=== PATIENT | male | born 1995 | race American Indian/Alaskan Native ===

== ENCOUNTER 2020-11-19 23:49 | Emergency (ER) | payer SELFPAY ==
[2020-11-20 00:59] VITALS: BP 148/104
[2020-11-20 02:18] LABS: BUN/Creatinine Ratio 13; Blood Urea Nitrogen 9 mg/dL (9-20); Calcium 9.2 mg/dL (8.4-10.2); Hemolysis Index 2
[2020-11-20 02:31] LABS: Basophils % (Auto) 0.4 % (0.0-1.8); Eosinophils # (Auto) 0.1 K/mm3 (0.0-0.4); Eosinophils % (Auto) 1.1 % (0.0-4.3); Hematocrit 37.1 % (35.5-45.6); Hemoglobin 13.1 gm/dl (11.8-15.2); Lymphocytes # (Auto) 1.5 K/mm3 (1.2-5.4); Lymphocytes % (Auto) 20.4 % (13.4-35.0); Mean Corpuscular HGB Conc 35 % (32-34); Mean Corpuscular Volume 95 fl (84-94); Monocytes # (Auto) 0.7 K/mm3 (0.0-0.8); Monocytes % (Auto) 9.9 % (0.0-7.3); Platelet Count 259 K/mm3 (140-440); Red Blood Count 3.93 M/mm3 (3.65-5.03); Red Cell Distribution Width 12.8 % (13.2-15.2)
[2020-11-20] MEDS ORDERED: LIDOCAINE VISCOUS 2% 15 ML ORAL LIQD PO ONE (04:56)
[2020-11-20] MEDS ORDERED: levETIRAcetam 500 MG TAB PO ONE (04:56)
--- NOTE | 2020-11-20 04:56 | Emergency Department Report ---
ED General Adult HPI - General Chief complaint: Seizure Stated complaint: DON'T FEEL GOOD Time Seen by Provider: 11/20/20 04:55 Source: patient, RN notes reviewed Mode of arrival: Stretcher Limitations: No Limitations - History of Present Illness Initial comments: The patient was evaluated in the emergency department for symptoms described in the history of present illness. He/she was evaluated in the context of the global COVID-19 pandemic, which necessitated consideration that the patient might be at risk for infection with the virus that causes COVID-19. Institutional protocols and algorithms that pertain to the evaluation of patients at risk for COVID-19 are in a state of rapid change based on information released by regulatory bodies including the CDC and federal and state organizations. These policies and algorithms were followed during the patient's care in the emergency department. Please note that these policies, procedures and recommendations changed on a rapid basis. This is a 25-year-old gentleman with reported history of seizure disorder, takes 1 g of Keppra twice daily, also smokes cigarettes and occasional cannabis, p resenting to the ER with a complaint of tongue bite, suffered from a convulsion 1 week ago, and feeling like he will have a seizure. He has not had a seizure for 1 week. He denies headache, neck pain, chest pain, abdominal pain, shortness of breath, urinary symptoms. He is anxious. He would like a refill on his Keppra. He also has tongue discomfort where he bit his tongue. He reports he is very anxious that he is going to have another seizure. However, he has not had another seizure in the past week. -: Gradual Consistency: constant Improves with: none Worsens with: none - Related Data Previous Rx's Medication Instructions Recorded Last Taken Type Lidocaine Viscous 2% [Xylocaine 20 mg MM BID PRN #50 ml 11/20/20 Unknown Rx Viscous 2%] levETIRAcetam [Keppra TAB] 1,000 mg PO BID #60 tab 11/20/20 Unknown Rx Allergies Allergy/AdvReac Type Severity Reaction Status Date / Time carbinoxamine [From [facility]] Allergy Hives Verified 11/20/20 00:59 pseudoephedrine [From [facility]] Allergy Hives Verified 11/20/20 00:59 ED Review of Systems ROS: Stated complaint: DON'T FEEL GOOD Other details as noted in HPI Constitutional: denies: fever Respiratory: denies: cough Cardiovascular: denies: chest pain Gastrointestinal: denies: abdominal pain Genitourinary: denies: dysuria Neurological: denies: weakness Psychiatric: anxiety ED Past Medical Hx - Past Medical History Previous Medical History?: Yes Hx Seizures: Yes - Surgical History Past Surgical History?: No - Social History Smoking Status: Current Every Day Smoker Substance Use Type: Marijuana - Medications Home Medications: Home Medications Medication Instructions Recorded Confirmed Last Taken Type Lidocaine Viscous 2% [Xylocaine 20 mg MM BID PRN #50 ml 11/20/20 Unknown Rx Viscous 2%] levETIRAcetam [Keppra TAB] 1,000 mg PO BID #60 tab 11/20/20 Unknown Rx ED Physical Exam - General Limitations: No Limitations General appearance: alert, anxious - Head Head exam: Present: atraumatic, normocephalic - Eye Eye exam: Present: normal appearance, EOMI. Absent: nystagmus - ENT ENT exam: Present: normal exam, normal orophraynx, mucous membranes moist, normal external ear exam, other (Patient is speaking in full sentences. There is no stridor. There is no dysphonia. Healing wound noted to the right lateral aspect of the tongue. There is no active bleeding.) - Neck Neck exam: Present: normal inspection, full ROM. Absent: tenderness, meningismus - Respiratory Respiratory exam: Present: normal lung sounds bilaterally. Absent: respiratory distress, wheezes, rales, rhonchi, stridor, decreased breath sounds - Cardiovascular Cardiovascular Exam: Present: regular rate, normal rhythm, normal heart sounds. Absent: bradycardia, tachycardia, irregular rhythm, systolic murmur, diastolic murmur, rubs, gallop - GI/Abdominal GI/Abdominal exam: Present: soft. Absent: distended, tenderness, guarding, rebound, rigid, pulsatile mass - Rectal Rectal exam: Present: deferred - Extremities Exam Extremities exam: Present: normal inspection, full ROM, other (2+ pulses noted in the bilateral upper extremities. There is no long bony tenderness. The muscular compartments are soft.). Absent: pedal edema, calf tenderness - Back Exam Back exam: Present: normal inspection, full ROM. Absent: tenderness, CVA tenderness (R), CVA tenderness (L), paraspinal tenderness, vertebral tenderness - Neurological Exam Neurological exam: Present: alert, normal gait, other (No facial droop. Tongue midline. Extraocular movements intact bilaterally. Facial sensation intact to light touch in V1, V2, V3 distribution bilaterally. 5 and a 5 strength in 4 e xtremities. Sensation intact to light touch in 4 extremities.). Absent: motor sensory deficit - Psychiatric Psychiatric exam: Present: anxious - Skin Skin exam: Present: warm, dry, intact, normal color. Absent: rash ED Course Vital Signs 11/20/20 00:32 Temperature 98.0 F Pulse Rate 87 Respiratory 18 Rate Blood Pressure 148/104 O2 Sat by Pulse 100 Oximetry ED Medical Decision Making - Lab Data Result diagrams: 11/20/20 01:08 11/20/20 01:08 Vital Signs 11/20/20 00:32 Temperature 98.0 F Pulse Rate 87 Respiratory 18 Rate Blood Pressure 148/104 O2 Sat by Pulse 100 Oximetry Lab Results 11/20/20 11/20/20 Range/Units 01:08 01:08 WBC 7.4 (4.5-11.0) K/mm3 RBC 3.93 (3.65-5.03) M/mm3 Hgb 13.1 (11.8-15.2) gm/dl Hct 37.1 (35.5-45.6) % MCV 95 H (84-94) fl MCH 33 H (28-32) pg MCHC 35 H (32-34) % RDW 12.8 L (13.2-15.2) % Plt Count 259 (140-440) K/mm3 Lymph % (Auto) 20.4 (13.4-35.0) % Bibb % (Auto) 9.9 H (0.0-7.3) % Eos % (Auto) 1.1 (0.0-4.3) % Baso % (Auto) 0.4 (0.0-1.8) % Lymph # (Auto) 1.5 (1.2-5.4) K/mm3 Bibb # (Auto) 0.7 (0.0-0.8) K/mm3 Eos # (Auto) 0.1 (0.0-0.4) K/mm3 Baso # (Auto) 0.0 (0.0-0.1) K/mm3 Seg Neutrophils % 68.2 (40.0-70.0) % Seg Neutrophils # 5.0 (1.8-7.7) K/mm3 Sodium 137 (137-145) mmol/L Potassium 3.9 (3.6-5.0) mmol/L Chloride 101.0 (98-107) mmol/L Carbon Dioxide 25 (22-30) mmol/L Anion Gap 15 mmol/L BUN 9 (9-20) mg/dL Creatinine 0.7 L (0.8-1.3) mg/dL Estimated GFR > 60 ml/min BUN/Creatinine Ratio 13 % Glucose 95 (75-100) mg/dL Calcium 9.2 (8.4-10.2) mg/dL - Medical Decision Making Differential diagnosis, including but not limited to: General medical exam, me dication refill, history of seizure, subacute tongue wounds Assessment and plan: 25-year-old gentleman, who was afebrile, with reassuring vital signs, clinically sober, with a GCS of 15, but very anxious. He is protecting his airway, with no stridor. Has subacute tongue wound to the right lateral aspect of the tongue. Laboratory studies were ordered prior to my personal evaluation, and they are fairly unremarkable. Patient will be given a refill on his Keppra. Counseled to not smoke, not consume alcohol, not drive for 6 months, and to avoid consumption of cannabis. Patient observed in this ER for hours without clinical decompensation, does not appear to have an emergent medical condition present at this time Critical care attestation.: If time is entered above; I have spent that time in minutes in the direct care of this critically ill patient, excluding procedure time. ED Disposition Clinical Impression: History of seizure, Medication refill Tongue wound Qualifiers: Encounter type: initial encounter Qualified Code(s): S01.502A - Unspecified open wound of oral cavity, initial encounter Disposition: DC-01 TO HOME OR SELFCARE Is pt being admited?: No Does the pt Need Aspirin: No Condition: Stable Instructions: Seizure, Adult, Tongue Laceration, [id number] Additional Instructions: Recommend that patient avoid consumption of alcohol, tobacco, cigarettes, marijuana and smoke products. Recommend that patient not drive or operate motor vehicles for 6 months, after last seizure/convulsive event, and recommend that patient follow-up with a neurologist or primary care doctor within the next week. Take the Keppra medication as directed. Take the Viscous Lidocaine medication as needed for sensation of tongue discomfort. Please return to the emergency room right away with new pain, worsened pain, migration of pain, projectile vomiting, change in mental status, confusion, inability to tolerate liquid feeds, new, worsened or different symptoms not present on the initial emergency room evaluation. Referrals: JEOVANY AGUSTIN MD [Referring] - 3-5 Days FABIEN STEEN MD [Staff Physician] - 3-5 Days FOREST MCGREGOR MD [Staff Physician] - 3-5 Days
== END 2020-11-20 05:25 | disposition home or self-care (01) ==
LOC: ED 23:49
DX: S01.502A Unspecified open wound of oral cavity, initial encounter (principal); G40.909 Epilepsy, unspecified, not intractable, without status epilepticus; Z76.0 Encounter for issue of repeat prescription; F17.200 Nicotine dependence, unspecified, uncomplicated; F12.10 Cannabis abuse, uncomplicated; Z79.899 Other long term (current) drug therapy; Z88.8 Allergy status to other drugs, medicaments and biological substances; X58.XXXA Exposure to other specified factors, initial encounter; Y93.89 Activity, other specified; Y92.89 Other specified places as the place of occurrence of the external cause; Y99.8 Other external cause status
CPT/HCPCS: 36415; 80048; 85025; 99283